=== PATIENT | male | born 1985 ===

== ENCOUNTER 2020-01-07 13:47 | Outpatient (CLI) | payer MEDICAID ==
[~2020-01-07] VITALS: Ht 182.9 cm; Wt 73.5 kg
[2020-01-07 14:38] VITALS: BP 121/79
[2020-01-07] MEDS ORDERED: TRUVADA 200 MG1 EAC1 ORAL (14:38)
[2020-01-07] MEDS ORDERED: LITHIUM CARBON150 MG ORAL (14:38)
[2020-01-07] MEDS ORDERED: LAMICTAL100 MG ORAL (14:38)
[2020-01-07] MEDS ORDERED: PANTOPRAZOLE SO40 MG ORAL (14:38)
--- NOTE | 2020-01-07 17:30 | Consultation ---
DATE OF CONSULTATION: 01/07/2020 CONSULTING PHYSICIAN: Mario Pablo MD CHIEF COMPLAINT: GERD and abdominal pain. HISTORY OF PRESENT ILLNESS: This is a 35-year-old male with numerous medical problems, which I will dictate in a second, who came to our office with complaint of severe acid reflux disease. Currently, he has been on PPI with some improvement, but not resolving the issue. He also complained of solid dysphagia. PAST MEDICAL HISTORY: 1. 2. Bipolar. 3. Questionable hepatitis C. 4. Depression. 5. Cervical stenosis. PAST SURGICAL HISTORY: None. MEDICATIONS: Numerous medications. Please see medication reconciliation list. FAMILY HISTORY: Noncontributory. SOCIAL HISTORY: The patient denies any tobacco, alcohol, or IV drug abuse. ALLERGIES: No known drug allergies. REVIEW OF SYSTEMS: Positive for GERD, constipation, and bloating. PHYSICAL EXAMINATION: VITAL SIGNS: Temperature 99, blood pressure is 121/69, pulse 83, respirations 20. HEENT: Normocephalic and atraumatic. Sclerae anicteric. NECK: Supple. No evidence of obvious lymphadenopathy. HEART: Regular rhythm. Plus S1, S2. LUNGS: Clear to auscultation bilaterally. ABDOMEN: Positive bowel sounds. Soft and nontender. No rebound. No guarding. No peritoneal sign. EXTREMITIES: No cyanosis. No clubbing. No edema. ASSESSMENT AND PLAN: This is a 35-year-old male patient with chronic GERD, signs and symptoms of dysphagia. PLAN: Protonix twice a day. Plan to get an endoscopy. Reflux measures was explained to the patient. The patient will follow after endoscopy. Mario Pablo M.D. DR: Kortney JOB#: [id number] CC:
== END 2020-01-07 15:47 | disposition home or self-care (01) ==
LOC: PAN 13:47
DX: K21.9 Gastro-esophageal reflux disease without esophagitis (principal); R10.9 Unspecified abdominal pain; F31.9 Bipolar disorder, unspecified; R13.10 Dysphagia, unspecified; F32.9 Major depressive disorder, single episode, unspecified; K59.00 Constipation, unspecified; R14.0 Abdominal distension (gaseous)
CPT/HCPCS: G0463

== ENCOUNTER 2020-02-05 14:10 | Outpatient (CLI) | payer MEDICAID ==
[~2020-02-05 14:10] MED LIST: LAMICTAL100 MG ORAL; LITHIUM CARBON150 MG ORAL; PANTOPRAZOLE SO40 MG ORAL; TRUVADA 200 MG1 EAC1 ORAL
--- NOTE | 2020-02-05 15:12 | General Progress Note ---
Assessment/Plan Assessment/Plan: GERD gastritis cont protonix BID probiotics will мария ppi next visit Subjective ROS Limited/Unobtainable: Yes Allergies: Coded Allergies: No Known Allergies (Unverified , 01/07/20) Objective General Appearance: alert EENT: normal ENT inspection Neck: supple Cardiovascular: normal rate Respiratory/Chest: decreased breath sounds Abdomen: normal bowel sounds, non tender, soft Extremities: non-tender Mario Pablo MD Feb 05, 2020 15:12
[2020-02-05 16:03] VITALS: BP 112/75
== END 2020-02-05 16:10 | disposition home or self-care (01) ==
LOC: PAN 14:10
DX: K21.9 Gastro-esophageal reflux disease without esophagitis (principal); K29.70 Gastritis, unspecified, without bleeding
CPT/HCPCS: 99212

== ENCOUNTER 2020-04-06 10:51 | Outpatient (CLI) | payer MEDICAID ==
--- NOTE | 2020-04-06 11:37 | General Progress Note ---
Subjective ROS Limited/Unobtainable: Yes Allergies: Coded Allergies: No Known Allergies (Unverified , 01/07/20) Objective General Appearance: alert EENT: normal ENT inspection Neck: supple Cardiovascular: normal rate Respiratory/Chest: lungs clear Abdomen: normal bowel sounds, non tender, soft Extremities: non-tender Assessment/Plan Assessment/Plan: chronic GERD s/p EGD on ppi BID add baclofen will мария ppi next month Mario Pablo MD Apr 06, 2020 11:37
[2020-04-06 12:36] VITALS: BP 127/79
== END 2020-04-06 12:51 | disposition home or self-care (01) ==
LOC: PAN 10:51
DX: K21.9 Gastro-esophageal reflux disease without esophagitis (principal)
CPT/HCPCS: 99212